=== PATIENT | female | born 1960 | race African-American/Black ===

== ENCOUNTER → 2016-07-29 | Outpatient (CLI) | payer OTHER ==
[~2016-07-29] MED LIST: ALDACTONE; CERTAGEN PO; FLEXERIL PO; HRT PATCH; MOBIC PO; PERCOCET5/325 PO; TORADOL10 MG PO
--- NOTE | ~2016-07-29 | MY11 ---
[facility] A Service of [facility] RADIOLOGY TEXT RESULTS PATIENT: MARCIA URBANO LOCATION: [facility] : 64 UNIT #: [id number] AGE: [address]: Ishaan Rosario MD SEX: F ORDER DR: [id number] [address] [address] [id number] MR#: [id number] Acc #: [id number] NAME: MARCIA URBANO : 1960 SEX: F STUDY DATE/TIME: 07/29/2016 16:15 UNIT: [facility] ROOM: STUDY DESCRIPTION: MY Mammogram Screening Dig Ramon Attending Physician: Ishaan Rosario M.D. Referring Physician: Ishaan Rosario M.D. Ordering Physician: Ishaan Rosario M.D. Primary Care Physician: Ishaan Rosario M.D. MEDICAL IMAGING REPORT This report is preliminary unless electronic signature is present. EXAM Bilateral Digital Screening Mammogram with CAD INDICATION Breast cancer screening. 56-year-old asymptomatic female. No personal or family history of breast cancer. COMPARISON 10/29/2012, 11/20/2010 FINDINGS There are scattered fibroglandular tissues. No suspicious findings are present. IMPRESSION No mammographic evidence of malignancy. Annual screening mammography and clinical breast exam are recommended. A result letter will be sent to the patient. Patients over the age of 40 are entered into a reminder system with target due date for the next mammogram. BIRADS: 1 Negative Dictated by... Jose Burleson M.D. THIS IS AN ELECTRONICALLY VERIFIED REPORT Jose Burleson M.D. at 08/08/2016 5:54 [address] [facility] A Service [facility] RADIOLOGY TEXT RESULTS PATIENT: MARCIA URBANO LOCATION: [facility] : 64 UNIT #: [id number] AGE: [address]: Ishaan Rosario MD SEX: F ORDER DR: TD: 08/04/2016 18:19 JOB #: [id number] MEDICAL IMAGING REPORT Page 1 of 1
== END | disposition home or self-care (01) ==
LOC: SMAM 15:29
DX: Z12.31 Encounter for screening mammogram for malignant neoplasm of breast (principal)
CPT/HCPCS: G0202